=== PATIENT | female | born 1995 | race Caucasian/White ===

== ENCOUNTER 2024-05-06 20:59 | Emergency (ER) | payer OTHER, SELFPAY ==
[2024-05-06 21:08] VITALS: BP 162/82; PULSE 96; TEMP 36.6; O2SAT 99; BMI 22.5
--- NOTE | 2024-05-06 21:15 | XR_ITS ---
The [address] [address] Patient Name: CRISTIAN Galeas LINK MRN: [id number] date: 1995 Sex: F Assigned Patient Location: ER Current Patient Location: Accession/Order Number: [id number] Exam Date: 05/06/2024 21:24 Report Date: 05/06/2024 22:03 At the request of: KRYSTIN LAZO Procedure: XR hand LT min 3V EXAM: XR hand LT min 3V HISTORY: attn middle and ring finger s/p injury COMPARISON: None. TECHNIQUE: 3 views left hand FINDINGS: There is a fracture of the third mid phalanx, likely extra-articular. Questionable fracture of the fourth phalanx. The carpal rows and arcs are maintained. XR/XR hand LT min 3V IMPRESSION: Fracture of the third mid phalanx. Questionable nondisplaced angulated fracture of the mid fourth phalanx. Electronically authenticated by: JAVED TATE Date: 05/06/2024 22:03
--- NOTE | 2024-05-06 21:20 | ED_ITS ---
HPI HPI - Extremity Injury (Upper) General Chief Complaint: Extremity Injury, Upper Stated Complaint: Upper Extremity Injury Time Seen by Provider: 05/06/24 21:15 Source: patient Mode of arrival: walk-in Limitations: no limitations History of Present Illness HPI narrative: 28-year-old female presents to the ER for evaluation of left finger pain to the ring and middle finger. Patient reports prior history of fracture to this hand and fingers. Patient states earlier today she was laying with a friend on a blanket when a bee came by and rolled up abruptly twisting the fingers. Patient has had pain since. She reports a throbbing aching sensation around the PIP joint and both the ring and middle finger. Range of motion appears intact but she prefers to keep the fingers in extension. Patient is right-hand dominant. Patient currently staying at [facility] complaint: injury to: Reports left and finger Other Extremity Injury: Left: fingers Hand dominance: right Related Data Home Medications ?Medication ?Instructions ?Recorded ?Confirmed aripiprazole 5 mg tablet (Abilify) 5 mg PO DAILY 05/06/24 05/06/24 buspirone 7.5 mg tablet 7.5 mg PO BID 05/06/24 05/06/24 hydrochlorothiazide 12.5 mg capsule 12.5 mg PO DAILY 05/06/24 05/06/24 lamotrigine 25 mg tablet 25 mg PO DAILY 05/06/24 05/06/24 lidocaine 5 % topical patch 1 patch topical Q24H 05/06/24 05/06/24 losartan 50 mg tablet 50 mg PO DAILY 05/06/24 05/06/24 propranolol 10 mg tablet 10 mg PO Q12H 05/06/24 05/06/24 sertraline 100 mg tablet (Zoloft) 100 mg PO DAILY 05/06/24 05/06/24 trazodone 50 mg tablet 50 mg PO DAILY PRN sleep 05/06/24 05/06/24 Allergies Allergy/AdvReac Type Severity Reaction Status Date / Time amoxicillin [From Augmentin] AdvReac Unknown Verified 05/06/24 21:13 clavulanic acid AdvReac Unknown Verified 05/06/24 21:13 [From Augmentin] Opioid HPI Opioid Management Most Recent Pain and Opioid Data: Last Pain Scale 6 05/06/24 21:33 Last ED Pain Assessment 05/06/24 21:28 Review of Systems ROS Constitutional Denies: fever or chills Ears, nose, mouth, and throat Denies: throat pain or neck pain Respiratory Denies: shortness of breath or cough Musculoskeletal Reports: extremity pain (left hand ring and middle finger) Integumentary/Breast Denies: rash Exam Narrative Exam Narrative: Nurse's notes and vital signs reviewed. Patient is not hypoxic. General: The patient appears well and in no apparent distress. Patient is resting comfortably on cart. Skin: Warm, dry, no pallor noted. Head: Normocephalic, atraumatic Eye: Normal conjunctiva Respiratory: Patient is in no distress Musculoskeletal: The left wrist and hand shows no obvious deformity. There was minimal swelling noted. The patient had limited ROM due to pain in the middle and ring fingers. no evidence of droop at DIP. . The patient had tenderness noted to proximal and middle phalanx on ring and middle finger. The patient had no tenderness in the anatomical snuff box. The patient had no pain with axial loading of the thumb. Pulses are intact at brachial and radial 2+. There was no deficit at the elbow or shoulder. The patient has normal capillary refill to all distal digits. The patient has no evidence of cyanosis or mottling. The patient is able to flex and extend all digits without difficulty. Neurological: A&O x4, normal sensory, normal motor Psychiatric: Cooperative Constitutional Vital Signs, click to edit/add: Last Vital Signs Temp 98 F 05/06/24 21:08 Pulse 96 H 05/06/24 21:08 Resp 16 05/06/24 21:08 BP 162/82 H 05/06/24 21:08 Pulse Ox 99 05/06/24 21:08 O2 Del Method Room Air 05/06/24 21:08 Course Vital Signs Vital signs: Vital Signs Temperature 98 F 05/06/24 21:08 Pulse Rate 96 H 05/06/24 21:08 Respiratory Rate 16 05/06/24 21:08 Blood Pressure 162/82 H 05/06/24 21:08 Pulse Oximetry 99 05/06/24 21:08 Oxygen Delivery Method Room Air 05/06/24 21:08 Temperature 98 F 05/06/24 21:08 Pulse Rate 96 H 05/06/24 21:08 Respiratory Rate 16 05/06/24 21:08 Blood Pressure 162/82 H 05/06/24 21:08 Pulse Oximetry 99 05/06/24 21:08 Oxygen Delivery Method Room Air 05/06/24 21:08 MDM - Extremity Injury (Upper) MDM Narrative Medical decision making narrative: Ice pack given on arrival, patient ordered Tylenol for pain, she is currently under Vivitrol treatment. Discussed injury and patient reporting prior fracture, x-rays will be performed. Reviewed x-rays patient had prior fracture to these 2 fingers, well-formed callus noted, suspected slight rotation of ring finger at the middle phalanx. Callus formation noted. Patient encouraged to have fingers alonzo taped for support. Continue to work on range of motion. She may ice and elevate as needed. She will be given the name of orthopedics for follow-up, but may follow-up with previous provider pending ongoing treatment at her facility. A new acute fracture is not suspected. The patient is to followup with primary care physician in next 2-3 days or to return to the emergency department should any of the signs or symptoms worsen or new symptoms develop. Patient had questions answered. The patient agrees with the following Diagnosis and Treatment plan and the patient will be discharged home. Imaging Data left Hand: Attestation: I personally reviewed and interpreted this imaging study as follows: My impression: To the middle phalanx on the ring and index finger, no new acute fracture appreciated. Discharge Plan Discharge Stand Alone Forms: Portal Instructions Chief Complaint: Extremity Injury, Upper Clinical Impression: Sprain of finger of left hand Closed fracture of middle phalanx of finger with routine healing Qualifiers: Finger: middle finger Fracture alignment: nondisplaced Laterality: left Qualified Code(s): S62.653D - Nondisplaced fracture of middle phalanx of left middle finger, subsequent encounter for fracture with routine healing Closed fracture of middle phalanx of finger Qualifiers: Encounter type: subsequent encounter Finger: ring finger Fracture alignment: nondisplaced Laterality: left Fracture healing: with routine healing Qualified Code(s): S62.655D - Nondisplaced fracture of middle phalanx of left ring finger, subsequent encounter for fracture with routine healing Patient Disposition: Home, Self-Care Time of Disposition Decision: 21:38 Condition: Good Prescriptions / Home Meds: No Action buspirone 7.5 mg tablet 7.5 mg PO BID lidocaine 5 % adhesive patch,medicated 1 patch topical Q24H propranolol 10 mg tablet 10 mg PO Q12H sertraline [Zoloft] 100 mg tablet 100 mg PO DAILY losartan 50 mg tablet 50 mg PO DAILY lamotrigine 25 mg tablet 25 mg PO DAILY hydrochlorothiazide 12.5 mg capsule 12.5 mg PO DAILY aripiprazole [Abilify] 5 mg tablet 5 mg PO DAILY trazodone 50 mg tablet 50 mg PO DAILY PRN (Reason: sleep) Print Language: Argentine Instructions: Finger Sprain (ED) Additional Instructions: Prior fractures to ring and middle finger appear well-healing, excellent callus. Recommend alonzo tape fingers as needed. Work on range of motion, ice and elevate. Orthopedics given for follow-up as needed. Patient may follow-up with previous provider. Referrals: Mingo Eli MD [Physician] - As needed Shaikh Carranza MD [Physician] - 1 week
[2024-05-06] MEDS: ACETAMINOPHEN 500 MG TABLET 1000 MG PO (21:33)
== END 2024-05-06 21:48 | disposition home or self-care (01) ==
PROVIDERS: Emergency Provider Internal Medicine
DX: S63.619A Unspecified sprain of unspecified finger, initial encounter (principal); X50.9XXA Other and unspecified overexertion or strenuous movements or postures, initial encounter; S62.653D Nondisplaced fracture of middle phalanx of left middle finger, subsequent encounter for fracture with routine healing; S62.655D Nondisplaced fracture of middle phalanx of left ring finger, subsequent encounter for fracture with routine healing
CPT/HCPCS: 73130; 99283